=== PATIENT | female | born 1950 | race Hispanic/Latino ===

== ENCOUNTER 2023-09-16 12:53 | Emergency (ER) | payer MEDICARE ==
[~2023-09-16] VITALS: Ht 162.6 cm; Wt 90.7 kg
[2023-09-16 13:33] LABS: BASOPHILS # (AUTO) 0.04 K/uL (0.00-0.20); BASOPHILS % (AUTO) 0.6 % (0.0-5.0); EOSINOPHILS # (AUTO) 0.18 K/uL (0.00-0.70); EOSINOPHILS % (AUTO) 2.9 % (0.0-8.0); HEMATOCRIT 37.8 % (36-48); IMMATURE GRANULOCYTE ABSOLUTE 0.01 K/uL (0-1); LYMPHOCYTES % (AUTO) 32.2 % (21.0-51.0); MEAN CORPUSCULAR HEMOGLOBIN 31.3 pg (27.0-33.0); MEAN CORPUSCULAR HGB CONC 34.9 g/dL (32.0-36.0); MEAN CORPUSCULAR VOLUME 89.6 fL (79-99); MONOCYTES # (AUTO) 0.6 K/uL (0.1-1.0); MONOCYTES % (AUTO) 9.1 % (3.0-13.0); NEUTROPHILS # (AUTO) 3.5 K/uL (1.8-7.7); PLATELET COUNT (AUTO) 239 K/uL (130-400); RED BLOOD CELL COUNT(AUTO) 4.22 MIL/uL (4.00-5.50); RED CELL DISTRIBUTION WIDTH 13.2 % (11.0-15.5); WHITE BLOOD COUNT (AUTO) 6.3 K/uL (4.8-10.8)
[2023-09-16 13:39] LABS: CREATININE 0.9 mg/dL (0.5-1.0); POTASSIUM 4.8 mmol/L (3.5-5.1)
[2023-09-16] MEDS: ASPIRIN 325MG TAB PO ONE (13:54)
[2023-09-16 14:07] LABS: APPEARANCE,URINE CLEAR (CLEAR); BILIRUBIN,URINE NEGATIVE (NEGATIVE); COLOR,URINE COLORLESS (YELLOW); GLUCOSE, URINE (UA) NEGATIVE (NEGATIVE); KETONES,URINE NEGATIVE (NEGATIVE); LEUKOCYTE ESTERASE ,URINE NEGATIVE Leu/uL (NEGATIVE); NITRATE,URINE NEGATIVE (NEGATIVE); OCCULT BLOOD,URINE NEGATIVE (NEGATIVE); PH,URINE 6.5 (5.0-8.0); PROTEIN,URINE NEGATIVE (NEGATIVE); UROBILINOGEN,URINE 0.2 mg/dL (0.2-1.0)
[2023-09-16 14:11] LABS: ADD UA MICROSCOPIC NO
[2023-09-16 15:23] LABS: SARS-CoV-2, RNA, NAAT NEGATIVE SARS CoV-2 (NEGATIVE)
[2023-09-16 15:26] LABS: INFLUENZA TYPE A Negative For Type A (NEGATIVE); INFLUENZA TYPE B Negative For Type B (NEGATIVE)
[2023-09-16] MEDS: 0.9% NACL 500ML IV.SOLN 500 ML IV ONE (15:29)
[2023-09-16 18:10] VITALS: BP 153/67; PULSE 51; RESP 17; O2SAT 96
== END 2023-09-16 18:44 | disposition home or self-care (01) ==
LOC: EDH 12:53
DX: I10 Essential (primary) hypertension (principal); R51.9 Headache, unspecified; E86.0 Dehydration; E87.1 Hypo-osmolality and hyponatremia; M19.90 Unspecified osteoarthritis, unspecified site; Z20.822 Contact with and (suspected) exposure to COVID-19
CPT/HCPCS: 99285; 71045; 87635; 84484 ×2; 80048; 83880; 85025; 87804 ×2; 81003; 36415; 93005; J7040

== ENCOUNTER 2023-09-29 21:59 | Emergency (ER) | payer MEDICARE ==
[~2023-09-29] VITALS: Ht 162.6 cm; Wt 88.5 kg
[2023-09-29 22:17] LABS: ADD UA MICROSCOPIC NO; APPEARANCE,URINE CLEAR (CLEAR); BILIRUBIN,URINE NEGATIVE (NEGATIVE); COLOR,URINE COLORLESS (YELLOW); GLUCOSE, URINE (UA) NEGATIVE (NEGATIVE); KETONES,URINE NEGATIVE (NEGATIVE); LEUKOCYTE ESTERASE ,URINE NEGATIVE Leu/uL (NEGATIVE); NITRATE,URINE NEGATIVE (NEGATIVE); OCCULT BLOOD,URINE NEGATIVE (NEGATIVE); PH,URINE 6.5 (5.0-8.0); PROTEIN,URINE NEGATIVE (NEGATIVE); UROBILINOGEN,URINE 0.2 mg/dL (0.2-1.0)
[2023-09-29 22:33] LABS: HEMATOCRIT 39.6 % (36-48); MEAN CORPUSCULAR HEMOGLOBIN 31.2 pg (27.0-33.0); MEAN CORPUSCULAR HGB CONC 34.8 g/dL (32.0-36.0); MEAN CORPUSCULAR VOLUME 89.6 fL (79-99); RED BLOOD CELL COUNT(AUTO) 4.42 MIL/uL (4.00-5.50); RED CELL DISTRIBUTION WIDTH 13.2 % (11.0-15.5); WHITE BLOOD COUNT (AUTO) 7.5 K/uL (4.8-10.8)
[2023-09-29 22:50] LABS: ALBUMIN 4.2 g/dL (3.5-5.0); BILIRUBIN,TOTAL 0.5 mg/dL (0.2-1.0); CREATININE 0.8 mg/dL (0.5-1.0); POTASSIUM 4.2 mmol/L (3.5-5.1); TOTAL PROTEIN, SERUM 8.1 g/dL (6.0-8.3)
[2023-09-29] MEDS: hydrALAZine 20MG/ML VIAL IV ONE (22:56)
[2023-09-29] MEDS: LACTATED RINGERS 1000ML 1,000 ML IV ONE (23:08)
[2023-09-29] MEDS ORDERED: CLON0.1T PO (23:44)
[2023-09-29 23:54] VITALS: BP 119/68; PULSE 61; RESP 16; O2SAT 98
== END 2023-09-30 00:36 | disposition home or self-care (01) ==
LOC: EDH 21:59
DX: I10 Essential (primary) hypertension (principal); I1A.0 Resistant hypertension; E87.1 Hypo-osmolality and hyponatremia; E87.8 Other disorders of electrolyte and fluid balance, not elsewhere classified; M19.90 Unspecified osteoarthritis, unspecified site; I73.9 Peripheral vascular disease, unspecified; Z90.710 Acquired absence of both cervix and uterus
CPT/HCPCS: 99285; 96374; 71045; 96361; 84484; 80053; 83880; 85027; 81003; 36415; 93005; J7120; J0360

== ENCOUNTER 2024-01-20 23:09 | Emergency (ER) | payer MEDICARE ==
[~2024-01-20] VITALS: Ht 162.6 cm; Wt 90.7 kg
[~2024-01-20 23:09] MED LIST: CLON0.1T PO
[2024-01-20 23:10] VITALS: TEMP 97.1
[2024-01-20] MEDS: hydrALAZine 20MG/ML VIAL IV STA (23:34)
[2024-01-20 23:45] LABS: BASOPHILS # (AUTO) 0.04 K/uL (0.00-0.20); BASOPHILS % (AUTO) 0.6 % (0.0-5.0); EOSINOPHILS # (AUTO) 0.19 K/uL (0.00-0.70); EOSINOPHILS % (AUTO) 2.8 % (0.0-8.0); HEMATOCRIT 39.1 % (36-48); IMMATURE GRANULOCYTE ABSOLUTE 0.01 K/uL (0-1); LYMPHOCYTES # (AUTO) 2.6 K/uL (1.0-4.8); LYMPHOCYTES % (AUTO) 38.3 % (21.0-51.0); MEAN CORPUSCULAR HEMOGLOBIN 31.3 pg (27.0-33.0); MONOCYTES # (AUTO) 0.7 K/uL (0.1-1.0); MONOCYTES % (AUTO) 10.3 % (3.0-13.0); NEUTROPHILS # (AUTO) 3.3 K/uL (1.8-7.7); NEUTROPHILS % (AUTO) 47.9 % (40.0-77.0); PLATELET COUNT (AUTO) 247 K/uL (130-400); RED BLOOD CELL COUNT(AUTO) 4.25 MIL/uL (4.00-5.50); RED CELL DISTRIBUTION WIDTH 13.7 % (11.0-15.5); WHITE BLOOD COUNT (AUTO) 6.9 K/uL (4.8-10.8)
[2024-01-21] LABS: POTASSIUM 3.9 mmol/L (3.5-5.1)
--- NOTE | 2024-01-21 00:02 | HMCIMG ---
CT HEAD/BRAIN W/O CONTRAST HISTORY: Hypertension COMPARISON: None TECHNIQUE: Multiple sequential axial images of the head were obtained from the base of the skull through vertex. Patient was not given contrast through intravenous route. FINDINGS: The ventricles and extraventricular CSF spaces are nondilated for patient's age. There is no midline shift, mass effect or herniation. No acute intracranial bleed is seen. Post sinus surgical changes are seen. Visualized portion of the paranasal sinuses are grossly within normal limits. IMPRESSION: 1. No acute intracranial bleed is seen. CT was performed with one or more following dose reduction techniques: automated exposure control, adjustment of the mA and kv according to patient's size, or use of a iterative reconstruction technique.
[2024-01-21 00:15] LABS: APPEARANCE,URINE CLEAR (CLEAR); BILIRUBIN,URINE NEGATIVE (NEGATIVE); GLUCOSE, URINE (UA) NEGATIVE (NEGATIVE); KETONES,URINE NEGATIVE (NEGATIVE); LEUKOCYTE ESTERASE ,URINE NEGATIVE Leu/uL (NEGATIVE); NITRATE,URINE NEGATIVE (NEGATIVE); OCCULT BLOOD,URINE NEGATIVE (NEGATIVE); PROTEIN,URINE NEGATIVE (NEGATIVE); UROBILINOGEN,URINE 0.2 mg/dL (0.2-1.0)
[2024-01-21 00:22] LABS: ADD UA MICROSCOPIC NO; COLOR,URINE Light-Yellow (YELLOW)
[2024-01-21 00:36] VITALS: BP 135/56; PULSE 81; RESP 17; O2SAT 98
--- NOTE | 2024-01-21 00:45 | ERN ---
ED Note History of Present Illness Stated Complaint: HIGH BLOOD PRESSURE Chief Complaint: Hypertension Time Seen by MD: 23:18 Time Seen by Midlevel: 23:20 Dictation: 73-year-old female coming in with complaints of headache and elevated blood pressure onset today prior to arrival. Patient states PCP has been changing her medications to control her blood pressure. Patient states they recently changed her hydralazine from 50 b.i.d. to 25 t.i.d.. Patient also states she takes olmesartan, carvedilol, and clonidine as needed for BP greater than 170. Patient denies any nausea or vomiting. Allergies: Coded Allergies: No Known Allergies (Unverified Allergy, Unknown, 09/16/23) Home Meds Active Scripts Clonidine HCl (Clonidine HCl) 0.1 Mg Tablet, 0.1 MG PO TID for high bp, #15 TAB Prov:SAHRA OFNTENOT MD 09/29/23 Past Medical History Past Medical History: Arthritis, Hypertension Additional Past Medical Hx: PVD Surgical History: Hysterectomy, Other Surgical History Other: NASAL Social History: Negative, Lives with family History: Not Applicable Review of System Dictation Constitutional: Negative for fever,chills, and weight loss Eyes: Negative for injury, pain,redness, and discharge ENT: Negative for injury,pain or swelling Cardiovascular: Negative for chest pain, palpitations, and edema Respiratory: Negative for shortness of breath, cough, and wheezing, Abdomen/GI: Negative for abdominal pain, nausea, vomiting, diarrhea, and constipation Back: Negative for injury and pain : Negative for injury, bleeding and discharge MS/Extremity: Negative for injury and deformity Skin: Negative for rash, and discoloration Neuro: Positive for headaches, weakness, numbness, tingling, and seizure Psych: Negative for suicide ideation, homicidal ideation, and hallucinations Review of Systems: was completed Initial Vital Sign VS Vital Signs Date Time Temp Pulse Resp B/P (MAP) Pulse Ox O2 Delivery O2 Flow Rate FiO2 01/20/24 23:10 97.2 66 16 195/84 98 Room Air 01/20/24 23:17 0 21 Physical Exam Dictation General: awake, alert, NAD Head/Face: Normocephalic, atraumatic Eyes: PERRL, EOMI, vision at baseline ENT: oral cavity clear, TMs clear, no signs of infection Neck: Trachea midline, supple, no nuchal rigidity Cardiovascular: RRR, normal S1/S2, No MRGs, no JVD Respiratory: CTAB, no respiratory distress, No rales or wheezes Abdomen: Soft, non-tender, non-distended, normal bowel sounds, no guarding or rebound. Skin: Warm, dry, normal turgor, no rash MS/Extremity: Pulses equal, no cyanosis, neurovascular intact, FROM Neuro: COAx4, GCS 15, strength 5/5, CN 2-12 intact, normal cerebellar exam, normal gait, Psych: Normal behavior, mood, and affect normal Results (Laboratory/Radiology) Laboratory/Radiology Laboratory Tests Test 01/20/24 23:32 01/20/24 23:45 White Blood Count 6.9 K/uL (4.8-10.8) Red Blood Count 4.25 MIL/uL (4.00-5.50) Hemoglobin 13.3 g/dL (12.0-16.0) Hematocrit 39.1 % (36-48) Mean Corpuscular Volume 92.0 fL (79-99) Mean Corpuscular Hemoglobin 31.3 pg (27.0-33.0) Mean Corpuscular Hemoglobin Concent 34.0 g/dL (32.0-36.0) Red Cell Distribution Width 13.7 % (11.0-15.5) Platelet Count 247 K/uL (130-400) Mean Platelet Volume 10.4 fL (7.5-10.5) Immature Granulocyte % (Auto) 0.1 % (0-1) Neutrophils (%) (Auto) 47.9 % (40.0-77.0) Lymphocytes (%) (Auto) 38.3 % (21.0-51.0) Monocytes (%) (Auto) 10.3 % (3.0-13.0) Eosinophils (%) (Auto) 2.8 % (0.0-8.0) Basophils (%) (Auto) 0.6 % (0.0-5.0) Neutrophils # (Auto) 3.3 K/uL (1.8-7.7) Lymphocytes # (Auto) 2.6 K/uL (1.0-4.8) Monocytes # (Auto) 0.7 K/uL (0.1-1.0) Eosinophils # (Auto) 0.19 K/uL (0.00-0.70) Basophils # (Auto) 0.04 K/uL (0.00-0.20) Absolute Immature Granulocyte (auto 0.01 K/uL (0-1) Nucleated Red Blood Cells 0.0 % (0.0-0.19) Sodium Level 133 mmol/L (136-145) L Potassium Level 3.9 mmol/L (3.5-5.1) Chloride Level 97 mmol/L (101-111) L Carbon Dioxide Level 27 mmol/L (21-32) Blood Urea Nitrogen 21 mg/dL (7-18) H Creatinine 1.0 mg/dL (0.5-1.0) Glomerular Filtration Rate Calc 60 mL/min (>90) Random Glucose 104 mg/dL (70-105) Total Calcium 9.5 mg/dL (8.5-10.1) Troponin I High Sensitivity 10 ng/L (4-50) Urine Color Light-Yellow (YELLOW) Urine Appearance CLEAR (CLEAR) Urine pH 7.0 (5.0-8.0) Urine Specific [place] 1.003 (1.001-1.031) Urine Protein NEGATIVE mg/dL (NEGATIVE) Urine Glucose (UA) NEGATIVE mg/dL (NEGATIVE) Urine Ketones NEGATIVE mg/dL (NEGATIVE) Urine Occult Blood NEGATIVE (NEGATIVE) Urine Nitrate NEGATIVE (NEGATIVE) Urine Bilirubin NEGATIVE mg/dL (NEGATIVE) Urine Urobilinogen 0.2 mg/dL (0.2-1.0) Urine Leukocyte Esterase NEGATIVE Wendy/uL Labs Reviewed?: Yes EKG Comment: Date:01/20/24 Time:2322 Ventricular rate:62 MD interval:235 QRS duration:-35 QT/QTc:454/461 EKG interpretation: Sinus rhythm, prolonged MD interval, incomplete RBBB and LAFB, low voltage, precordial leads Reviewed by ED Attending no STEMI interpreted by ER MD ED Course ED Course Orders Procedure Category Date Status Time Cbc With Differential LAB 01/20/24 Complete 23:18 Basic Metabolic Panel LAB 01/20/24 Complete 23:18 Troponin I High LAB 01/20/24 Complete Sensitivity 23:18 12 Lead Ekg Tracing- EKG 01/20/24 Logged Technical 23:18 Ct Head/Brain W/O CT 01/20/24 Resulted Contrast 23:18 Hydralazine 20mg Inj PHA 01/20/24 Complete (Apresoline 20mg In 23:31 Urinalysis Profile LAB 01/20/24 Complete 23:48 Acetaminophen 500mg PHA 01/21/24 Verified Tab (Tylenol 500mg T 00:38 Current Medications Medications (Trade) Dose Ordered Sig/Johnson Route PRN Reason Start Time Stop Time Status Last Admin Dose Admin Hydralazine HCl (APRESOLine 20MG INJ) 10 mg ONCE STAT IV 01/20/24 23:31 01/20/24 23:32 DC 01/20/24 23:34 Vital Signs Date Time Temp Pulse Resp B/P (MAP) Pulse Ox O2 Delivery O2 Flow Rate FiO2 01/21/24 00:10 74 16 152/56 98 Room Air* 0 21 01/20/24 23:50 62 16 163/52 99 Room Air* 0 21 01/20/24 23:17 62 18 194/72 99 Room Air* 0 21 01/20/24 23:10 97.2 66 16 195/84 98 Room Air Medical Decision Making MDM MDM: 73-year-old female coming in with complaints of headache and elevated blood pressure onset today prior to arrival. Patient states PCP has been changing her medications to control her blood pressure. Patient states they recently changed her hydralazine from 50 b.i.d. to 25 t.i.d.. Patient also states she takes olmesartan, carvedilol, and clonidine as needed for BP greater than 170. Patient denies any nausea or vomiting. Blood work is unremarkable. CT scan of the head is normal. After hydralazine 10 mg IV, blood pressure is now in the 130s. Discussed findings with the patient. Educated patient she needs to follow up with her PCP to have her medications further evaluated. Educated to return back to the emergency room as needed. Patient verbalized understanding, answered all questions. Differential diagnosis: ICH, uncontrolled hypertension, noncompliance, hypertensive emergency Rationale: Tests considered and ordered secondary to shared decision making include: Previous outside records reviewed: Old ER visits. Risk of complication and/or morbidity or mortality of patient management: None Medications-Per medication reconciliation Need for hospitalization: Patient does not meet criteria for hospitalization. Need for emergency major/minor surgery: No There are no social concerns with this patient. Prescription drug management Prescriptions will include symptomatic care Patient's prior external medical records from other ER visits were reviewed by me as indicated. Prior testing and results from previous visits were reviewed. Prior tests were taken into account with medical decision making and resource utilization, independent historian/historians were used to obtain complete medical history. I independently interpreted the test that were performed, results were reviewed by me and considered findings on radiology if ordered. Medical management and examination interpretation discussions were had by me with other qualified healthcare professionals as indicated for the patient's care. DX & DISP Disposition: Discharge Departure Impression: Primary Impression: Hypertension Additional Impression: Headache Condition: Stable Additional Instructions: Please return to the ER if any symptoms worsen or if your blood pressure spikes up again. Follow up on Monday with your PCP regarding your blood pressure. Referrals: PAR[facility] COVARRUBIAS (PCP) Time of Disposition: 00:45 I have reviewed the case, and I agree with, Diagnosis and Plan COSMO CAZARES NP Jan 21, 2024 00:45
[2024-01-21] MEDS: acetaMINOPHEN 500 MG TABLET PO STA (00:53)
--- NOTE | 2024-01-22 10:00 | EKG ---
[facility] Test Date: 2024-01-20 Test Time: 23:22:10 Pat Name: AMANDA SPIVEY Department: [facility] Room: Gender: F Patent Engineer: [id number] : 1950 Requested By: COSMO CAZARES Order Number: [id number] Reading MD: Ryland Miranda Measurements Intervals [place] Rate: 62 P: -15 WA: 235 QRS: -35 QRSD: 103 T: 8 QT: 454 QTc: 461 Interpretive Statements Sinus rhythm Prolonged WA interval Incomplete RBBB and LAFB Low voltage, precordial leads Compared to ECG 09/29/2023 22:24:27 Left anterior fascicular block now present Incomplete right bundle-branch block now present Right bundle-branch block now present Left-axis deviation no longer present Myocardial infarct finding no longer present Electronically Signed On 01-22-2024 20:58:45 SERVOMECHANISM ASSEMBLER by Ryland Miranda Please click the below link to view image of tracing.
== END 2024-01-21 01:09 | disposition home or self-care (01) ==
LOC: EDH 23:09
DX: R51.9 Headache, unspecified (principal); I10 Essential (primary) hypertension; M19.90 Unspecified osteoarthritis, unspecified site; Z79.899 Other long term (current) drug therapy; Z90.710 Acquired absence of both cervix and uterus; Z98.890 Other specified postprocedural states
CPT/HCPCS: 99285; 96374; 70450; 84484; 80048; 85025; 81003; 36415; 93005; J0360

== ENCOUNTER 2024-02-01 02:16 | Emergency (ER) | payer MEDICARE ==
[~2024-02-01] VITALS: Ht 162.6 cm; Wt 89.4 kg
[2024-02-01 03:06] LABS: BASOPHILS # (AUTO) 0.04 K/uL (0.00-0.20); BASOPHILS % (AUTO) 0.6 % (0.0-5.0); EOSINOPHILS # (AUTO) 0.18 K/uL (0.00-0.70); EOSINOPHILS % (AUTO) 2.6 % (0.0-8.0); HEMATOCRIT 35.9 % (36-48); IMMATURE GRANULOCYTE ABSOLUTE 0.01 K/uL (0-1); LYMPHOCYTES # (AUTO) 2.9 K/uL (1.0-4.8); LYMPHOCYTES % (AUTO) 41.1 % (21.0-51.0); MEAN CORPUSCULAR HEMOGLOBIN 32.2 pg (27.0-33.0); MEAN CORPUSCULAR HGB CONC 36.5 g/dL (32.0-36.0); MEAN CORPUSCULAR VOLUME 88.2 fL (79-99); MONOCYTES # (AUTO) 0.6 K/uL (0.1-1.0); MONOCYTES % (AUTO) 9.1 % (3.0-13.0); NEUTROPHILS # (AUTO) 3.3 K/uL (1.8-7.7); NEUTROPHILS % (AUTO) 46.5 % (40.0-77.0); PLATELET COUNT (AUTO) 284 K/uL (130-400); RED BLOOD CELL COUNT(AUTO) 4.07 MIL/uL (4.00-5.50)
[2024-02-01 03:14] LABS: MAGNESIUM 1.8 mg/dL (1.80-2.40); POTASSIUM 3.8 mmol/L (3.5-5.1)
--- NOTE | 2024-02-01 03:44 | ERN ---
ED Note History of Present Illness Stated Complaint: C/O HIGH B/P Chief Complaint: Hypertension Time Seen by MD: 02:21 Allergies: Coded Allergies: No Known Allergies (Unverified Allergy, Unknown, 09/16/23) Home Meds Active Scripts Clonidine HCl (Clonidine HCl) 0.1 Mg Tablet, 0.1 MG PO TID for high bp, #15 TAB Prov:SAHRA FONTENOT MD 09/29/23 Past Medical History Dictation 73-year-old female with past medical history of hypertension presents via private vehicle with concerns for hypertensive crisis. Patient states she has been feeling numbness in her left arm and lightheadedness and associated high blood pressure. Patient denies chest pain, shortness of breath, nausea, vomiting diaphoresis, syncope, presyncope, productive cough Past Medical History: Hypertension Additional Past Medical Hx: PVD Surgical History: Hysterectomy Surgical History Other: NASAL Social History: Negative, Lives with family History: Not Applicable Review of System Dictation See HPI Initial Vital Sign VS Vital Signs Date Time Temp Pulse Resp B/P (MAP) Pulse Ox O2 Delivery O2 Flow Rate FiO2 02/01/24 02:17 96.8 63 20 180/83 97 Room Air 02/01/24 02:32 0 21 Physical Exam Dictation Elevated BMI, uncomfortable appearing, anxious appearing, lungs clear to auscultation, symmetrical breath sounds, regular heart rate and rhythm, no murmurs rubs or gallop, abdomen is soft, nontender, non peritoneal, and person no x4, 5/5 strength extremities Results (Laboratory/Radiology) Laboratory/Radiology Laboratory Tests Test 02/01/24 02:35 02/01/24 03:23 White Blood Count 7.0 K/uL (4.8-10.8) Red Blood Count 4.07 MIL/uL (4.00-5.50) Hemoglobin 13.1 g/dL (12.0-16.0) Hematocrit 35.9 % (36-48) L Mean Corpuscular Volume 88.2 fL (79-99) Mean Corpuscular Hemoglobin 32.2 pg (27.0-33.0) Mean Corpuscular Hemoglobin Concent 36.5 g/dL (32.0-36.0) H Red Cell Distribution Width 13.0 % (11.0-15.5) Platelet Count 284 K/uL (130-400) Mean Platelet Volume 10.3 fL (7.5-10.5) Immature Granulocyte % (Auto) 0.1 % (0-1) Neutrophils (%) (Auto) 46.5 % (40.0-77.0) Lymphocytes (%) (Auto) 41.1 % (21.0-51.0) Monocytes (%) (Auto) 9.1 % (3.0-13.0) Eosinophils (%) (Auto) 2.6 % (0.0-8.0) Basophils (%) (Auto) 0.6 % (0.0-5.0) Neutrophils # (Auto) 3.3 K/uL (1.8-7.7) Lymphocytes # (Auto) 2.9 K/uL (1.0-4.8) Monocytes # (Auto) 0.6 K/uL (0.1-1.0) Eosinophils # (Auto) 0.18 K/uL (0.00-0.70) Basophils # (Auto) 0.04 K/uL (0.00-0.20) Absolute Immature Granulocyte (auto 0.01 K/uL (0-1) Nucleated Red Blood Cells 0.0 % (0.0-0.19) Sodium Level 122 mmol/L (136-145) L Potassium Level 3.8 mmol/L (3.5-5.1) Chloride Level 89 mmol/L (101-111) *L Carbon Dioxide Level 27 mmol/L (21-32) Blood Urea Nitrogen 18 mg/dL (7-18) Creatinine 1.0 mg/dL (0.5-1.0) Glomerular Filtration Rate Calc 60 mL/min (>90) Random Glucose 96 mg/dL (70-105) Total Calcium 8.7 mg/dL (8.5-10.1) Magnesium Level 1.80 mg/dL (1.80-2.40) Troponin I < 0.05 ng/mL (0.00-0.05) ED Course ED Course Orders Procedure Category Date Status Time Cbc With Differential LAB 02/01/24 In Process 02:35 B-Type Natriuretic LAB 02/01/24 In Process Peptide 02:35 Chest 1vw RAD 02/01/24 Taken 02:35 12 Lead Ekg Tracing- EKG 02/01/24 Logged Technical 02:35 Magnesium LAB 02/01/24 Complete 02:35 Troponin Poc Order LAB 02/01/24 Complete Only 02:35 Basic Metabolic Panel LAB 02/01/24 Complete 02:35 Hydralazine 20mg Inj PHA 02/01/24 Complete (Apresoline 20mg In 03:00 Current Medications Medications (Trade) Dose Ordered Sig/Johnson Route PRN Reason Start Time Stop Time Status Last Admin Dose Admin Hydralazine HCl (APRESOLine 20MG INJ) 20 mg ONCE ONCE IV 02/01/24 03:00 02/01/24 03:01 DC Vital Signs Date Time Temp Pulse Resp B/P (MAP) Pulse Ox O2 Delivery O2 Flow Rate FiO2 02/01/24 03:05 50 14 141/62 95 Room Air* 0 21 02/01/24 02:50 52 16 159/62 96 Room Air* 0 21 02/01/24 02:32 97.5 52 16 196/75 98 Room Air* 0 21 02/01/24 02:17 96.8 63 20 180/83 97 Room Air Medical Decision Making MDM ddx: CHF versus hypertensive crisis versus STEMI versus NSTEMI versus electrolyte derangement All images and diagnosis interpreted by me unless otherwise specified 04/03/2023; 0246 Sinus bradycardia 50 beats per minute, left axis, normal intervals, no acute ischemic ST-T changes EKG shows no acute ischemic changes. Troponin within normal limits. Doubt STEMI. Doubt NSTEMI. Chest x-ray shows no acute cardiopulmonary pathology. Doubt pneumonia. Doubt CHF. Electrolytes within normal limits. Doubt electrolyte derangement. Patient's blood pressure improved with hydralazine and symptoms resolve Upon re-evaluation, patient remains without symptoms. Discussed ED workup patient. Recommend close primary care follow-up. Return precautions given. Invited and answered all questions prior to discharge. Patient agreeable to plan. DX & DISP Disposition: Discharge Departure Impression: Primary Impression: Hypertension Condition: Stable Additional Instructions: Please return to the emergency department immediately if you develop change in vision, headaches, sudden loss of consciousness, feeling lightheaded, chest pain, nausea, vomiting, sweating, abdominal pain. These symptoms are concerning for cardiac etiology. Please follow up with primary care physician and appointment for blood pressure control Referrals: [facility] COVARRUBIAS (PCP) Time of Disposition: 03:44 ALESSIO POLO DO Feb 01, 2024 03:44
[2024-02-01] MEDS: hydrALAZine 20MG/ML VIAL IV ONE (03:46)
[2024-02-01 03:54] LABS: B-TYPE NATRIURETIC PEPTIDE 113 pg/mL (0-100)
[2024-02-01 03:55] VITALS: BP 140/59; PULSE 54; RESP 18; TEMP 97.8; O2SAT 96
--- NOTE | 2024-02-01 06:37 | EKG ---
[facility] Test Date: 2024-02-01 Test Time: 02:46:06 Pat Name: AMANDA SPIVEY Department: [facility] Room: Gender: F Mothercraft Nurse: [id number] : 1950 Requested By: ALESSIO POLO Order Number: [id number] Reading MD: Antonieta Villanueva Measurements Intervals [place] Rate: 50 P: 20 ND: 283 QRS: -34 QRSD: 103 T: 6 QT: 462 QTc: 424 Interpretive Statements Sinus rhythm Prolonged ND interval Left axis deviation Low voltage, precordial leads Compared to ECG 01/20/2024 23:22:10 Left-axis deviation now present Left anterior fascicular block no longer present Incomplete right bundle-branch block no longer present Right bundle-branch block no longer present Electronically Signed On 02-01-2024 10:34:23 VETERINARY TECHNICIAN by Antonieta Villanueva Please click the below link to view image of tracing.
--- NOTE | 2024-02-01 08:51 | HMCIMG ---
Exam Type: CHEST 1VW Clinical Information: cp Comparison: None Findings: The lungs are clear of infiltrates. The heart is normal in size. The bony and soft tissue structures of the chest are unremarkable. Impression: Clear lungs.
== END 2024-02-01 03:57 | disposition home or self-care (01) ==
LOC: EDH 02:16
DX: I10 Essential (primary) hypertension (principal); Z79.899 Other long term (current) drug therapy; Z90.710 Acquired absence of both cervix and uterus
CPT/HCPCS: 36415; 71045; 80048; 83735; 83880; 84484; 85025; 93005; 99285

== ENCOUNTER 2024-02-01 21:04 | Emergency (ER) | payer MEDICARE ==
[~2024-02-01] VITALS: Ht 162.6 cm; Wt 90.7 kg
[2024-02-01] MEDS: acetaMINOPHEN 325 MG TAB PO ONE (21:29)
[2024-02-01 22:18] VITALS: TEMP 98.7
[2024-02-01] MEDS: metoCLOPRAmide 10 MG TABLET PO ONE (22:54)
[2024-02-01 23:42] VITALS: BP 171/84; PULSE 60; RESP 20; TEMP 97.8; O2SAT 100
--- NOTE | 2024-02-02 00:40 | ERN ---
ED Note History of Present Illness Stated Complaint: HIGH BP Chief Complaint: Hypertension Time Seen by MD: 21:53 Allergies: Coded Allergies: No Known Allergies (Unverified Allergy, Unknown, 09/16/23) Home Meds Active Scripts Clonidine HCl (Clonidine HCl) 0.1 Mg Tablet, 0.1 MG PO TID for high bp, #15 TAB Prov:SAHRA FONTENOT MD 09/29/23 Past Medical History Dictation 73-year-old female with past medical history of hypertension presents with concerns for hypertensive crisis. Patient according headache and elevated blood pressure greater than 160 systolic. Patient was seen here in the emergency department yesterday for similar. Patient denies chest pain, nausea, vomiting diaphoresis, syncope, presyncope, productive cough Past Medical History: Hypertension Additional Past Medical Hx: THYROID DISEASE Surgical History: Hysterectomy, Other Surgical History Other: NOSE SX Social History: Negative, Lives with family History: Not Applicable Review of System Dictation See HPI Initial Vital Sign VS Vital Signs Date Time Temp Pulse Resp B/P (MAP) Pulse Ox O2 Delivery O2 Flow Rate FiO2 02/01/24 21:15 98.1 53 18 186/76 98 0 02/01/24 22:13 Room Air* 21 Physical Exam Dictation Elevated BMI, anxious appearing, lungs clear to auscultation, symmetrical breath sounds, 5/5 strength extremities x4, in no x4, abdomen is soft, nontender, non peritoneal, regular heart rate and rhythm ED Course ED Course Orders Procedure Category Date Status Time Acetaminophen 325 Tab PHA 02/01/24 Complete (Tylenol 325mg Tab 21:30 Metoclopramide 10 Mg PHA 02/01/24 Complete Tablet (Reglan 10 M 23:00 Current Medications Medications (Trade) Dose Ordered Sig/Johnson Route PRN Reason Start Time Stop Time Status Last Admin Dose Admin Acetaminophen (TYLenol 325MG TAB) 650 mg ONCE ONCE PO 02/01/24 21:30 02/01/24 21:31 DC 02/01/24 21:29 Metoclopramide HCl (regLAN 10 MG TAB) 10 mg ONCE ONCE PO 02/01/24 23:00 02/01/24 23:01 DC 02/01/24 22:54 Vital Signs Date Time Temp Pulse Resp B/P (MAP) Pulse Ox O2 Delivery O2 Flow Rate FiO2 02/01/24 23:42 97.9 60 20 171/84 100 Room Air* 0 21 02/01/24 22:13 97.7 53 20 167/71 100 Room Air* 0 21 02/01/24 21:15 98.1 53 18 186/76 98 0 Medical Decision Making MDM ddx: Hypertensive crisis versus STEMI versus NSTEMI versus asymptomatic hypertension versus CHF Patient was just seen here in the emergency department yesterday and had full workup. Chest x-ray shows no evidence of pulmonary vascular congestion. Low clinical suspicion for CHF. Cardiac enzymes negative x2, as per labs drawn yesterday. Low clinical suspicion for STEMI versus NSTEMI. Electrolytes within normal limits. Patient has headache. No neurological deficits. Considered CT head to assess for SAH. Low clinical suspicion Elected for pain control. Major decision to forego workup with the patient. Patient's headache improved with Reglan. Patient's blood pressure improved after the patient has taken clonidine. Encouraged patient to follow up with primary care physician about tighter blood pressure control. Counseled patient's on asymptomatic hypertension versus symptomatic hypertension and signs and symptoms, to merit coming to the emergency department DX & DISP Disposition: Discharge Departure Impression: Primary Impression: Uncontrolled hypertension Condition: Stable Additional Instructions: Please follow up with primary care physician next available appointment for re- evaluation of blood pressure. Please return to emergency department immediately if you experience change in vision, headache, sudden loss of consciousness, sudden weakness, chest pain, chest pressure, shortness of breath, difficulty br eathing, abdominal pain, nausea, vomiting, sweating. These are symptoms concerning for cardiac etiology of elevated blood pressure Referrals: [facility] COVARRUBIAS (PCP) Time of Disposition: 00:40 ALESSIO POLO DO Feb 02, 2024 00:40
== END 2024-02-02 00:42 | disposition home or self-care (01) ==
LOC: EDH 21:04
DX: I10 Essential (primary) hypertension (principal); Z79.899 Other long term (current) drug therapy; Z90.710 Acquired absence of both cervix and uterus; Z98.890 Other specified postprocedural states
CPT/HCPCS: 36415; 71045; 80048; 83735; 83880; 84484; 85025; 93005; 99283; 99285

== ENCOUNTER 2024-02-05 23:35 | Emergency (ER) | payer MEDICARE ==
[~2024-02-05] VITALS: Ht 160 cm; Wt 86.6 kg
[2024-02-06 00:15] LABS: BASOPHILS # (AUTO) 0.03 K/uL (0.00-0.20); BASOPHILS % (AUTO) 0.3 % (0.0-5.0); EOSINOPHILS # (AUTO) 0.08 K/uL (0.00-0.70); EOSINOPHILS % (AUTO) 0.9 % (0.0-8.0); HEMATOCRIT 36.9 % (36-48); IMMATURE GRANULOCYTE ABSOLUTE 0.02 K/uL (0-1); LYMPHOCYTES # (AUTO) 2.3 K/uL (1.0-4.8); LYMPHOCYTES % (AUTO) 26.6 % (21.0-51.0); MEAN CORPUSCULAR HEMOGLOBIN 31.4 pg (27.0-33.0); MEAN CORPUSCULAR HGB CONC 35.8 g/dL (32.0-36.0); MEAN CORPUSCULAR VOLUME 87.6 fL (79-99); MONOCYTES # (AUTO) 0.9 K/uL (0.1-1.0); MONOCYTES % (AUTO) 9.9 % (3.0-13.0); NEUTROPHILS # (AUTO) 5.4 K/uL (1.8-7.7); NEUTROPHILS % (AUTO) 62.1 % (40.0-77.0); PLATELET COUNT (AUTO) 275 K/uL (130-400); RED BLOOD CELL COUNT(AUTO) 4.21 MIL/uL (4.00-5.50); RED CELL DISTRIBUTION WIDTH 13.2 % (11.0-15.5); WHITE BLOOD COUNT (AUTO) 8.7 K/uL (4.8-10.8)
[2024-02-06 00:28] LABS: CREATININE 0.9 mg/dL (0.5-1.0); POTASSIUM 4.1 mmol/L (3.5-5.1)
[2024-02-06 00:31] LABS: INR 0.97 (0.85-1.15); PROTHROMBIN TIME 10.9 SEC (9.6-11.6)
[2024-02-06 00:32] LABS: PARTIAL THROMBOPLASTIN TIME 27.1 SEC (26.3-35.5)
[2024-02-06 00:33] LABS: MAGNESIUM 1.7 mg/dL (1.80-2.40)
[2024-02-06 00:37] LABS: APPEARANCE,URINE CLEAR (CLEAR); BILIRUBIN,URINE NEGATIVE (NEGATIVE); COLOR,URINE LIGHT-YELLOW (YELLOW); GLUCOSE, URINE (UA) NEGATIVE (NEGATIVE); KETONES,URINE NEGATIVE (NEGATIVE); LEUKOCYTE ESTERASE ,URINE 75 Leu/uL (NEGATIVE); NITRATE,URINE NEGATIVE (NEGATIVE); OCCULT BLOOD,URINE NEGATIVE (NEGATIVE); PROTEIN,URINE NEGATIVE (NEGATIVE); UROBILINOGEN,URINE 0.2 mg/dL (0.2-1.0)
[2024-02-06 00:39] LABS: ADD UA MICROSCOPIC YES
[2024-02-06 00:43] LABS: BACTERIA,URINE RARE /HPF (None Seen); RBC,URINE 0-1 /HPF (0-1); SQUAMOUS EPITHELIAL CELL,UR RARE /HPF (0-2)
[2024-02-06 01:13] LABS: B-TYPE NATRIURETIC PEPTIDE 62 pg/mL (0-100)
[2024-02-06] MEDS: MAGNESIUM 2GM PREMIX 50ML 50 ML IV STA (01:29)
[2024-02-06] MEDS ORDERED: CEPH500B PO (01:29)
--- NOTE | 2024-02-06 01:29 | ERN ---
General Chief Complaint: Hypertension Stated Complaint: C/O HIGH B/P Time Seen by MD: 23:38 Source: patient History of Present Illness Initial Comments Patient is a 73-year-old female coming in to be evaluated for elevated blood pressure. Patient states that earlier today while laying in bed checked her blood pressure because he felt a little short breath. She states that she has had multiple events in the past which have led her to come to the ER after evaluating her blood pressure and noticing those high. At the moment of evaluation in triage patient states her symptoms have subsided she is here for elevated blood pressure. Allergies: Coded Allergies: No Known Allergies (Unverified Allergy, Unknown, 09/16/23) Home Meds Active Scripts Clonidine HCl (Clonidine HCl) 0.1 Mg Tablet, 0.1 MG PO TID for high bp, #15 TAB Prov:SAHRA FONTENOT MD 09/29/23 Past Medical History Past Medical History: Arthritis, Hypertension Medical History Other: THYROID DISEASE Past Surgical History: Hysterectomy, Other Surgical History Other: NOSE SX Social History Social History: Negative, Lives with family Female( History) History: Not Applicable ROS Dictation CONSTITUTIONAL: No chills, no fever, no weakness, no diaphoresis, no malaise. HEAD/FACE: No signs of trauma. EENT: No eye pain, no blurred vision, no tearing, no double vision, no ear pain, no ear discharge, no nose pain, no nasal congestion, no throat pain, no throat swelling, no mouth pain. RESPIRATORY: No cough, no orthopnea, no SOB, no stridor, no wheezing. CARDIOVASCULAR: No chest pain, no edema, no palpitations, no syncope. GASTROINTESTINAL/ABDOMINAL: No abdominal pain, no constipation, no diarrhea, no nausea, no vomiting. GENITOURINARY: No abnormal discharge, no dysuria, no frequent urination, no hematuria. No complaints of pain in the genitals. MUSCULOSKELETAL: No back pain, no gout, no joint pain, no joint swelling, no muscle pain, no muscle stiffness, no neck pain. INTEGUMENTARY: No change in color, no change in hair/nails, no dryness, no le zhanna, no lumps, no rash. NEUROLOGICAL/PSYCH: No anxiety, not depressed, no emotional problem, no headache, no numbness, no pre-existing deficit, no history of seizures, no tremors, no weakness. HEMATOLOGIC/LYMPHATIC: Not anemic, no history of blood clots, no apparent bleeding, no bruising, glands not swollen. All Systems Negative, Except as Noted. Physical Exam Physical Exam Dictation VITAL SIGNS: Reviewed. GENERAL APPEARANCE: Alert, oriented x3, no acute distress, obese. HEAD AND FACE: Non-traumatic. EYES: PERRL, pink conjunctivas, eyelid no trauma, anterior chamber clear. EARS: Pinnas intact and no signs of trauma or erythema. Ear canals clear and no discharge. TMs no erythema. NOSE: No discharge, no bleeding. OROPHARYNX: Mouth normal, teeth no caries, tongue pink. Pharynx clear, no erythema. Tonsils no exudates, no abscesses noted. Mucous membrane moist. NECK: Supple, non-tender, no thyromegaly, no masses, no JVD, no bruits. BREAST: Deferred. CHEST: No tenderness, no crepitus, no paradoxical movement, no retractions. LUNGS: Clear, well-ventilated, symmetric, no rales, no wheezing, no rhonchi, no stridor, good breath sounds bilaterally. HEART: Regular rate, regular rhythm, no murmur, no gallops. VASCULAR: No peripheral edema. ABDOMEN: Soft, positive bowel sounds, nondistended, no guarding, nontender, no rebound, no masses no hepatomegaly, no splenomegaly, no Diaz's sign, no hernias. RECTAL: Deferred. GENITAL: Deferred. NEUROLOGICAL: Normal speech, gross motor function intact, gross sensory function intact. MUSCULOSKELETAL: Neck nontender, full range of motion, back nontender, full range of motion. EXTREMITIES: Nontender, full range of motion. SKIN: Color pink, dry, no turgor, no rash, no lacerations, no abrasions, no contusions. LYMPHATICS: Deferred. Results Laboratory and Microbiology Lab and Micro Result Laboratory Tests Test 02/06/24 00:07 02/06/24 00:24 White Blood Count 8.7 K/uL (4.8-10.8) Red Blood Count 4.21 MIL/uL (4.00-5.50) Hemoglobin 13.2 g/dL (12.0-16.0) Hematocrit 36.9 % (36-48) Mean Corpuscular Volume 87.6 fL (79-99) Mean Corpuscular Hemoglobin 31.4 pg (27.0-33.0) Mean Corpuscular Hemoglobin Concent 35.8 g/dL (32.0-36.0) Red Cell Distribution Width 13.2 % (11.0-15.5) Platelet Count 275 K/uL (130-400) Mean Platelet Volume 10.0 fL (7.5-10.5) Immature Granulocyte % (Auto) 0.2 % (0-1) Neutrophils (%) (Auto) 62.1 % (40.0-77.0) Lymphocytes (%) (Auto) 26.6 % (21.0-51.0) Monocytes (%) (Auto) 9.9 % (3.0-13.0) Eosinophils (%) (Auto) 0.9 % (0.0-8.0) Basophils (%) (Auto) 0.3 % (0.0-5.0) Neutrophils # (Auto) 5.4 K/uL (1.8-7.7) Lymphocytes # (Auto) 2.3 K/uL (1.0-4.8) Monocytes # (Auto) 0.9 K/uL (0.1-1.0) Eosinophils # (Auto) 0.08 K/uL (0.00-0.70) Basophils # (Auto) 0.03 K/uL (0.00-0.20) Absolute Immature Granulocyte (auto 0.02 K/uL (0-1) Nucleated Red Blood Cells 0.0 % (0.0-0.19) Prothrombin Time 10.9 SEC (9.6-11.6) Prothromb Time International Ratio 0.97 (0.85-1.15) Activated Partial Thromboplast Time 27.1 SEC (26.3-35.5) Sodium Level 129 mmol/L (136-145) L Potassium Level 4.1 mmol/L (3.5-5.1) Chloride Level 93 mmol/L (101-111) L Carbon Dioxide Level 29 mmol/L (21-32) Blood Urea Nitrogen 15 mg/dL (7-18) Creatinine 0.9 mg/dL (0.5-1.0) Glomerular Filtration Rate Calc 68 mL/min (>90) Random Glucose 98 mg/dL (70-105) Total Calcium 9.4 mg/dL (8.5-10.1) Magnesium Level 1.70 mg/dL (1.80-2.40) L Total Creatine Kinase 78 U/L (21-232) Troponin I High Sensitivity 10 ng/L (4-50) B-Type Natriuretic Peptide 62 pg/mL (0-100) Urine Color LIGHT-YELLOW (YELLOW) Urine Appearance CLEAR (CLEAR) Urine pH 7.0 (5.0-8.0) Urine Specific Anton 1.005 (1.001-1.031) Urine Protein NEGATIVE mg/dL (NEGATIVE) Urine Glucose (UA) NEGATIVE mg/dL (NEGATIVE) Urine Ketones NEGATIVE mg/dL (NEGATIVE) Urine Occult Blood NEGATIVE (NEGATIVE) Urine Nitrate NEGATIVE (NEGATIVE) Urine Bilirubin NEGATIVE mg/dL (NEGATIVE) Urine Urobilinogen 0.2 mg/dL (0.2-1.0) Urine Leukocyte Esterase 75 Wendy/uL (NEGATIVE) H Urine RBC 0-1 /HPF (0-1) Urine WBC 2-5 /HPF (0-1) H Urine Squamous Epithelial Cells RARE /HPF (0-2) Urine Bacteria RARE /HPF (None Seen) Labs Reviewed?: Yes EKG/XRAY/US/CT/MRI EKG Comment 02/05/2024 time 11:53 p.m. Ventricular rate [address] wave elevation or depression X-RAY Comment Chest [facility]-ray-[facility] MDM: Differential diagnosis: Hypomagnesemia, anxiety, dehydration, UTI, elevated blood pressure Patient is a 73-year-old female coming in to be evaluated for elevated blood pressure initially she states she felt mild short of breath and decided to come in to be evaluated. Throughout ER visit patient has been stable patient did not receive any medication for her blood pressure and on its own it normalized. I advised patient to follow up with PCP in 1-2 days. Patient will be discharged in stable condition with diagnosis of urinary tract infection with hypomagnesemia. ED Course Orders Procedure Category Date Status Time Cbc With Differential LAB 02/05/24 Complete 23:44 Prothrombin Time With LAB 02/05/24 Complete INR 23:44 B-Type Natriuretic LAB 02/05/24 Complete Peptide 23:44 Chest 1vw RAD 02/05/24 Taken 23:44 12 Lead Ekg Tracing- EKG 02/05/24 Logged Technical 23:44 Magnesium LAB 02/05/24 Complete 23:44 Creatine Kinase, Total LAB 02/05/24 Complete 23:44 Troponin I High LAB 02/05/24 Complete Sensitivity 23:44 Urinalysis Profile LAB 02/05/24 Complete 23:44 Partial LAB 02/05/24 Complete Thromboplastin Time 23:44 Basic Metabolic Panel LAB 02/05/24 Complete 23:44 Culture Urine DIEGO 02/06/24 In Process 00:39 Magnesium 2gm Premix PHA 02/06/24 Complete 50ml (Magnesium 2gm 01:18 Current Medications Medications (Trade) Dose Ordered Sig/Johnson Route PRN Reason Start Time Stop Time Status Last Admin Dose Admin Magnesium Sulfate 50 ml @ 0 mls/hr PROTOCOL STAT IV 02/06/24 01:18 02/06/24 01:19 DC Vital Signs Date Time Temp Pulse Resp B/P (MAP) Pulse Ox O2 Delivery O2 Flow Rate FiO2 02/06/24 00:56 59 17 158/71 98 Room Air* 0 21 02/06/24 00:15 63 19 168/66 97 Room Air* 0 21 02/05/24 23:38 97.5 64 20 192/81 98 Room Air DX & DISP Disposition: Discharge Departure Impression: Primary Impression: Dehydration Additional Impressions: Urinary tract infection, Hypomagnesemia Condition: Stable Scripts Cephalexin Monohydrate (Keflex) 500 Mg Cap 1 CAP PO BID for 10 Days, #20 CAP 0 Refills Prov: RICHARD PHILLIP MD 02/06/24 Additional Instructions: FOLLOW-UP WITH PRIMARY CARE PROVIDER IN 1 TO 2 DAYS. TAKE MEDICATIONS DIRECTED HERE IN THE EMERGENCY ROOM. OKAY TO CONTINUE HOME MEDICATIONS UNLESS OTHERWISE DISCUSSED DURING YOUR VISIT IN THE EMERGENCY ROOM TODAY. RETURN TO YOUR NEAREST EMERGENCY ROOM IF SYMPTOMS WORSEN OR IF THERE IS NO IMPROVEMENT. CALL 911 IF YOU NEED IMMEDIATE ASSISTANCE. TAKE TYLENOL [id number] NEEDED AND IF NO CONTRAINDICATIONS ARE PRESENT. INCREASE ORAL HYDRATION. A WOUND CULTURE OR URINE CULTURE WAS ORDERED HERE IN THE EMERGENCY ROOM DEPARTMENT PLEASE FOLLOW-UP WITH PRIMARY CARE PROVIDER AND ADVISE THEM TO GET REPEAT PORTS FROM OUR FACILITY. IF YOU HAD ANY NICOL WRAP/SPLINTS THAT WERE APPLIED HERE, PLEASE DO NOT REMOVE THEM UNTIL YOU SEE YOUR PRIMARY CARE OR SPECIALTY. Referrals: Referrals: [facility] (PCP) Time of Disposition: 01:28 RICHARD PHILLIP MD Feb 06, 2024 01:29
[2024-02-06 02:53] VITALS: BP 138/72; PULSE 64; RESP 18; TEMP 98.4; O2SAT 99
--- NOTE | 2024-02-06 07:49 | EKG ---
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
--- NOTE | 2024-02-06 08:55 | HMCIMG ---
CHEST 1VW REASON: sob COMPARISON: 02/01/2024 FINDINGS: Single view of the chest was obtained. Lungs are clear. Heart size is normal. There is no pulmonary vascular congestion. Mediastinum and bony thorax appear unremarkable. IMPRESSION: 1. Normal single view chest x-ray.
== END 2024-02-06 02:59 | disposition home or self-care (01) ==
LOC: EDH 23:35
DX: E86.0 Dehydration (principal); N39.0 Urinary tract infection, site not specified; E83.42 Hypomagnesemia; I10 Essential (primary) hypertension; M19.90 Unspecified osteoarthritis, unspecified site; E07.9 Disorder of thyroid, unspecified; Z90.710 Acquired absence of both cervix and uterus; Z79.899 Other long term (current) drug therapy
CPT/HCPCS: 99285; 71045; 82550; 83735; 84484 ×2; 80048 ×2; 83880; 85025 ×2; 85610; 85730; 87086; 81001; 36415 ×2; 93005 ×2; 99284; 96374; J3475